=== PATIENT | male | born 1970 | race American Indian/Alaskan Native ===

== ENCOUNTER 2019-12-03 16:54 | Inpatient (IN) | payer MEDICARE, MEDICAID, OTHER ==
[~2019-12-03 16:54] MED LIST: Ertapenem 1 GM in Sodium Chloride 0.9% 100 ML IV SCH; Meropenem 1 GM in Sodium Chloride 0.9% 100 ML IV ONE; Morphine 4 MG/ML Syringe IVPUSH PRN; Nicotine 21 MG/24 Hr Patch TRDERM PRN; Ondansetron 4 MG Tab.DIS PO PRN; Ondansetron 4 MG/2 ML SDV IVPUSH PRN; Promethazine 12.5 MG in Sodium Chloride 0.9% 50 ML IV PRN; Promethazine 25 MG in Sodium Chloride 0.9% 50 ML IV PRN; Scopolamine 1.5 MG Transdermal Patch TRDERM PRN; diphenhydrAMINE 25 MG Cap PO PRN; diphenhydrAMINE 50 MG/ML SDV IVPUSH PRN; fentaNYL 100 MCG/2 ML SDV IVPUSH PRN
[2019-12-03] MEDS: Sodium Chloride 0.9% 1,000 ML IV SCH (17:54)
[2019-12-03] MEDS: Morphine 4 MG/ML Syringe IVPUSH PRN ×2 (18:21→21:16)
[2019-12-03] MEDS ORDERED: Morphine 2 MG/ML Syringe ONE (21:02)
[2019-12-04] MEDS: Sodium Chloride 0.9% 1,000 ML IV SCH ×3 (02:31→21:58)
[2019-12-04] MEDS ORDERED: Morphine 2 MG/ML Syringe IVPUSH PRN ×2 (07:20→07:21)
[2019-12-04] MEDS ORDERED: Propofol 200 MG/20 ML SDV ONE (10:16)
[2019-12-04] MEDS ORDERED: Neostigmine Methylsulfate 1 MG/ML 5 ML Syringe ONE (10:16)
[2019-12-04] MEDS ORDERED: Dexamethasone 4 MG/ML SDV ONE (10:16)
[2019-12-04] MEDS ORDERED: Rocuronium 50 MG/5 ML Vial ONE (10:16)
[2019-12-04] MEDS ORDERED: fentaNYL 250 MCG/5 ML SDV ONE (10:16)
[2019-12-04] MEDS ORDERED: Ondansetron 4 MG/2 ML SDV ONE (10:16)
[2019-12-04] MEDS ORDERED: Glycopyrrolate 0.2 MG/ML 5 ML MDV ONE (10:16)
[2019-12-04] MEDS ORDERED: Midazolam 1 MG/ML 2 ML SDV ONE (10:16)
[2019-12-04] MEDS ORDERED: Succinylcholine 200 MG/10 ML MDV ONE (10:16)
[2019-12-04] MEDS ORDERED: Scopolamine 1.5 MG Transdermal Patch ONE (10:39)
[2019-12-04] MEDS: [UNRECOGNIZED DRUG - REMARK] TOP SCH (11:05)
[2019-12-04] MEDS ORDERED: Lactated Ringers 1,000 ML ONE (11:30)
[2019-12-04] MEDS ORDERED: Bupivacaine 0.5% 50 ML MDV ONE (11:54)
[2019-12-04] MEDS ORDERED: Naloxone 0.4 MG/ML SDV IV PRN (12:09)
[2019-12-04] MEDS: HYDROmorphone/Normal Saline 15 MG/30 ML PCA IV PRN (13:00)
[2019-12-04] MEDS ORDERED: Glucose Gel 15 GM in 37.5 GM Tube PO PRN (13:29)
[2019-12-04] MEDS ORDERED: Glucagon,Human Recombinant 1 MG Vial IM PRN (13:29)
[2019-12-04] MEDS ORDERED: 50% Dextrose in Water 50 ML Syringe IVPUSH PRN (13:29)
[2019-12-04] MEDS: Insulin Lispro 100 Unit/ML 3 ML KwikPen SUBCUT PRN ×2 (17:24→21:09)
[2019-12-04] MEDS: Insulin Glargine,Human Rec. Analog 100 Units/ML 3 ML Pen SUBCUT SCH (21:02)
[2019-12-05] MEDS: Sodium Chloride 0.9% 1,000 ML IV SCH (06:28)
[2019-12-05] MEDS: HYDROmorphone/Normal Saline 15 MG/30 ML PCA IV PRN (07:32)
[2019-12-05] MEDS: Insulin Lispro 100 Unit/ML 3 ML KwikPen SUBCUT PRN ×3 (07:33→17:47)
[2019-12-05] MEDS: Enoxaparin 40 MG/0.4 ML Syringe SUBCUT SCH (09:52)
[2019-12-05] MEDS: [UNRECOGNIZED DRUG - REMARK] TOP SCH (09:54)
[2019-12-05] MEDS ORDERED: Sodium Chloride 0.9% 1,000 ML IV SCH (10:15)
--- NOTE | 2019-12-05 12:01 | PN ---
DATE OF SERVICE: 12/05/2019 SUBJECTIVE: The patient is doing well. Pain is tolerable. No nausea, vomiting, shortness of breath, or chest pain. OBJECTIVE: VITAL SIGNS: Vital signs are stable. CARDIOVASCULAR: Regular rhythm and rate. RESPIRATORY: Clear to consultation bilaterally. ABDOMEN: Dressings are intact. ASSESSMENT AND PLAN: Status post below-knee amputation. PLAN: 1. Diet. Continue constant carbohydrate diet. 2. Diabetes. We will add some of his medications per diabetic nurse recommendations. 3. Activity. We will have PT consult for range of motion. 4. Prophylaxis. The patient is on Lovenox and early ambulation. 5. Fluid, electrolytes. We will TKO IV fluids and remove Shearer catheter. Sammy Saldivar MD /[id number]
[2019-12-05] MEDS: Insulin Glargine,Human Rec. Analog 100 Units/ML 3 ML Pen SUBCUT SCH (21:14)
[2019-12-06] MEDS: HYDROmorphone/Normal Saline 15 MG/30 ML PCA IV PRN (02:07)
[2019-12-06] MEDS: Enoxaparin 40 MG/0.4 ML Syringe SUBCUT SCH (08:06)
[2019-12-06] MEDS: Insulin Lispro 100 Unit/ML 3 ML KwikPen SUBCUT PRN (08:07)
[2019-12-06] MEDS: [UNRECOGNIZED DRUG - REMARK] TOP SCH (09:08)
[2019-12-06] MEDS ORDERED: Acetaminophen/oxyCODONE 325-5 MG Tab PO PRN (11:09)
--- NOTE | 2019-12-06 11:31 | PN ---
DATE OF SERVICE: 12/06/2019 SUBJECTIVE: The patient is doing very well. Pain is well controlled. No nausea, vomiting, shortness of breath, or chest pain. OBJECTIVE: VITAL SIGNS: Stable. He is afebrile per nursing report. MUSCULOSKELETAL: Incision is healing well without any signs of infection or abnormality. ASSESSMENT: Status post right [id number] amputation. PLAN: The patient will be discharged today. Please see discharge summary for further details. Sammy Saldivar MD /[id number]
--- NOTE | 2019-12-06 12:28 | PN ---
DATE OF SERVICE: 12/06/2019 REASON FOR HOSPITALIZATION: Left below-knee amputation. SUMMARY HOSPITAL COURSE: A pleasant 49-year-old male with a diabetic wound of his foot requiring amputation. The patient has been followed by [facility]iatry Services and unfortunately has not progressed and he now requires amputation. The patient did well postoperatively. His pain is well controlled. No nausea, vomiting, shortness of breath, or chest pain on discharge. His pain is well controlled with p.o. pain medication. Number of transfusions during this hospitalization none. Number of consultations, none. FOLLOWUP: Follow up with Dr. Rajinder Barbosa in [place] in 7 to 14 days. ACTIVITIES: With assistance and physical therapy is also consultated. DISCHARGE MEDICATIONS: Please see MAR, but include Percocet for pain. COMPLICATIONS DURING THIS HOSPITALIZATION: None. Sammy Saldivar MD /[id number]
--- NOTE | 2019-12-11 11:35 | DISCH ---
DISCHARGE DIAGNOSIS: Status post left below knee amputation. SUMMARY OF HOSPITAL COURSE: This is a pleasant 49-year-old male who required left below- knee amputation due to chronic wounds and significant history of osteomyelitis. The patient underwent an uneventful below the knee amputation. On postoperative day #1, he was monitored and he did not have any significant concerns. His pain remained well controlled without any evidence of nausea, vomiting, or any other abnormality. He was seen by Physical Therapy. FOLLOWUP: With Surgery in 7 to 14 days. DISCHARGE MEDICATIONS: Please see MAR. ADDITIONAL CONSULTATION DURING THIS HOSPITALIZATION: Physical therapy.
--- NOTE | 2019-12-12 11:03 | OR ---
DATE OF PROCEDURE: 12/04/2019 SURGEON: Sammy Saldivar MD PROCEDURE PERFORMED: Left [id number]-[id number] amputation. COMPLICATIONS: None. SUBSTITUTE NURSE: None. ANESTHETIC: EPIDURAL/MAC. INDICATIONS: A pleasant 49-year-old male with a chronic wound and concern for osteomyelitis requiring amputation. RISKS: Risks, benefits, alternatives, and limitations including, but not limited to, infection, bleeding, DVT formation, requirement for reoperation, and other risks not listed here were explained. The patient wished to proceed. PROCEDURE IN DETAIL: The patient was placed in supine position. The leg was prepped and draped. The procedure will be performed in a standard gastrocnemius flap type amputation. This was marked out intraoperatively and a 15 blade was used to circumnavigate the leg, excising the skin. Electrocautery was then used to further mobilize the deep structures including muscle and fascia. The tibia had been measured approximately 10 cm distal to the tibial plateau. This was then transected with a [employer] 7 and then the anterior aspect beveled to decrease tension on the skin. The fibula itself would be transected approximately 3 cm superior to this. The remaining muscle was removed from the leg using amputation knife. All 3 vascular bundles were identified and suture ligated. All named nerves were placed under tension, clamped, tied, and transected. The greater and lesser saphenous veins would also be identified and suture ligated. The tourniquet was dropped. Minimal bleeding was controlled by electrocautery. The flap was then constructed with muscle approximation with #1 Vicryl sutures. Subcutaneous tissue was then brought together with #1 Vicryl sutures. The skin was closed with a combination of horizontal mattress sutures and david. Compression dressing was applied. The patient tolerated the procedure well. Sammy Saldivar MD /[id number]
== END 2019-12-06 12:50 | disposition home or self-care (01) | DRG 618 ==
LOC: JP.ICU 16:54 → JP.MS 12-04 12:46 → EDSTATUS 12-04 14:45
PROVIDERS: ADMIT Surgery; ATTEND Surgery
PROC: 0Y6J0Z2 Detachment at Left Lower Leg, Mid, Open Approach (ICD-10-PCS; principal; 2019-12-04)
DX: E11.621 Type 2 diabetes mellitus with foot ulcer (principal); L97.529 Non-pressure chronic ulcer of other part of left foot with unspecified severity; N18.3 Chronic kidney disease, stage 3 (moderate); E11.42 Type 2 diabetes mellitus with diabetic polyneuropathy; I12.9 Hypertensive chronic kidney disease with stage 1 through stage 4 chronic kidney disease, or unspecified chronic kidney disease; E11.22 Type 2 diabetes mellitus with diabetic chronic kidney disease; D64.9 Anemia, unspecified; E78.2 Mixed hyperlipidemia; Z88.0 Allergy status to penicillin; Z79.899 Other long term (current) drug therapy
CPT/HCPCS: 36415; 82962; 85025; 85027; 88307; 88311; 94762; 97161-GP; A9270-GY; J0330; J1100; J1170; J1650; J1790; J1815; J1815-GY; J2185; J2250; J2270; J2405; J2704; J2710; J3010; J3490; J7030; J7050; J7120